=== PATIENT | female | born 1990 | race Two or more races ===

== ENCOUNTER 2021-10-30 03:58 | Day surgery (SDC) | payer OTHER ==
[2021-10-29 09:11] VITALS: BMI 27.3
[2021-10-30] MEDS ORDERED: MIDAZOLAM HCL 2 MG/2 ML SINGLE DOSE VIAL ONE (16:26)
[2021-10-30] MEDS ORDERED: ceFAZolin SODIUM 1 GM VIAL ONE ×2 (16:27)
[2021-10-30] MEDS ORDERED: ceFAZolin SODIUM 1 GM VIAL IVPB ONE (16:30)
[2021-10-30 17:54] VITALS: BP 118/70; PULSE 65; TEMP 98
== END 2021-10-30 17:58 | disposition home or self-care (01) ==
LOC: JASU-SURG 03:58
PROVIDERS: ATTEND Urology
PROC: 0TF4XZZ Fragmentation in Left Kidney Pelvis, External Approach (ICD-10-PCS; principal; 2021-10-30 15:15)
DX: N20.0 Calculus of kidney (principal)
CPT/HCPCS: 81025